=== PATIENT | male | born 1950 | race Caucasian/White ===

== ENCOUNTER 2024-05-08 08:04 | Day surgery (SDC) | payer MEDICARE, OTHER ==
[~2024-05-08] VITALS: Ht 182.9 cm; Wt 97.3 kg
[~2024-05-08 08:04] MED LIST: EYE DROP; Lactated Ringer's 1,000 ML IV ONE; MULTIVITAMIN PO; propofoL 50 ML IV ONE
[2024-05-08] MEDS ORDERED: ALFU10 (08:53)
[2024-05-08] MEDS ORDERED: IBUP600 (08:53)
[2024-05-08] MEDS ORDERED: ERGO50000 (08:53)
[2024-05-08] MEDS ORDERED: Prinivil10 MG (08:54)
[2024-05-08] MEDS ORDERED: Lactated Ringer's 1,000 ML IV ONE (09:08)
[2024-05-08 10:03] VITALS: BP 104/63
== END 2024-05-08 10:04 | disposition home or self-care (01) ==
LOC: ORSCSDS 08:04
PROVIDERS: Surgery
PROC: 0DJD8ZZ Inspection of Lower Intestinal Tract, Via Natural or Artificial Opening Endoscopic (ICD-10-PCS; principal; 2024-05-08 09:30)
DX: Z12.11 Encounter for screening for malignant neoplasm of colon (principal); I10 Essential (primary) hypertension; Z79.899 Other long term (current) drug therapy
CPT/HCPCS: J2704; J7120